=== PATIENT | male | born 1950 | race Caucasian/White ===

== ENCOUNTER → 2023-11-09 08:39 | Outpatient (REF) | payer OTHER, SELFPAY ==
[2023-11-09 09:11] LABS: % Basophils 0.4 % (0-2); % Eosinophils 1.6 % (0-6); % Immature Granulocytes 0.5 % (0-0.5); % Lymphocytes 33.6 % (20.5-51.1); % Monocytes 11.2 % (1.7-9.3); % Neutrophils 52.7 % (42.2-75.2); Absolute Eosinophils 0.1 10^3/uL (0-0.7); Absolute Lymphocytes 1.9 10^3/uL (1.2-3.4); Absolute Monocytes 0.6 10^3/uL (0.1-0.6); Absolute Neutrophils 2.9 10^3/uL (1.4-6.5); Hemoglobin 14.4 g/dL (13.0-18.0); Mean Corp Hgb Conc. 34.3 g/dL (33.0-37.0); Mean Corpuscular Hgb 30.4 pg (27.0-31.0); Mean Corpuscular Volume 88.6 fL (80.0-94.0); Mean Platelet Volume 9.2 fL (7.4-10.4); Nucleated Red Blood Cells % 0 % (-); Platelet Count 182 10^3/uL (130-400); Red Blood Cell Count 4.74 10^6/uL (4.70-6.10); Red Cell Dist. Width 13.5 % (11.5-14.5); White Blood Cell Count 5.5 10^3/uL (4.8-10.8)
[2023-11-09 09:58] LABS: ALT (SGPT) 23 U/L (0-50); AST (SGOT) 20 U/L (17-59); Albumin 3.7 g/dl (3.5-5.0); Alkaline Phosphatase 59 U/L (38-126); Blood Urea Nitrogen 14 mg/dl (9-20); Calcium 9.5 mg/dl (8.4-10.2); Carbon Dioxide 25 mmol/L (22-30); Chloride 103 mmol/L (98-107); Glucose 109 mg/dl (70-99); Magnesium 1.7 mg/dl (1.6-2.3); Sodium 136 mmol/L (135-145); Total Protein 6.1 g/dl (6.3-8.2); eGFR > 60.00
[2023-11-09 10:42] LABS: Protein/creatinine Ratio 2.9; Urine Protein 179 mg/dl
[2023-11-11 02:50] LABS: Tacrolimus (Prograft - FK506) 4.9 ng/mL
== END ==
LOC: REG 08:39
PROVIDERS: ATTENDING PHYSICIAN Specialist; FAMILY PHYSICIAN Internal Medicine
DX: Z94.0 Kidney transplant status (principal); N18.31 Chronic kidney disease, stage 3a; I10 Essential (primary) hypertension
CPT/HCPCS: 36415; 80053; 80197; 82570; 83735; 84156; 85025

== ENCOUNTER → 2023-11-30 08:11 | Outpatient (REF) | payer OTHER, SELFPAY ==
[2023-11-30 08:40] LABS: % Basophils 0.3 % (0-2); % Eosinophils 2.5 % (0-6); % Immature Granulocytes 0.3 % (0-0.5); % Lymphocytes 38.1 % (20.5-51.1); % Monocytes 12.3 % (1.7-9.3); % Neutrophils 46.5 % (42.2-75.2); Absolute Eosinophils 0.2 10^3/uL (0-0.7); Absolute Lymphocytes 2.3 10^3/uL (1.2-3.4); Absolute Monocytes 0.8 10^3/uL (0.1-0.6); Absolute Neutrophils 2.8 10^3/uL (1.4-6.5); Hematocrit 43.3 % (39.0-52.0); Hemoglobin 14.9 g/dL (13.0-18.0); Mean Corp Hgb Conc. 34.4 g/dL (33.0-37.0); Mean Corpuscular Hgb 31.1 pg (27.0-31.0); Mean Corpuscular Volume 90.4 fL (80.0-94.0); Mean Platelet Volume 9.4 fL (7.4-10.4); Nucleated Red Blood Cells % 0 % (-); Platelet Count 177 10^3/uL (130-400); Red Blood Cell Count 4.79 10^6/uL (4.70-6.10); Red Cell Dist. Width 13.6 % (11.5-14.5); White Blood Cell Count 6.1 10^3/uL (4.8-10.8)
[2023-11-30 09:12] LABS: ALT (SGPT) 19 U/L (0-50); AST (SGOT) 18 U/L (17-59); Albumin 3.7 g/dl (3.5-5.0); Alkaline Phosphatase 63 U/L (38-126); Blood Urea Nitrogen 18 mg/dl (9-20); Calcium 9.9 mg/dl (8.4-10.2); Carbon Dioxide 27 mmol/L (22-30); Chloride 102 mmol/L (98-107); Glucose 99 mg/dl (70-99); HDL Cholesterol 46 mg/dl; LDL Cholesterol, Calculated 70 mg/dl; Potassium 4.2 mmol/L (3.5-5.1); Sodium 139 mmol/L (135-145); Total Bilirubin 0.9 mg/dl (0.2-1.3); Total Cholesterol 142 mg/dl (50-199); Total Protein 6.3 g/dl (6.3-8.2); Triglyceride 134 mg/dl (10-149); Very Low Density Lipoprotein 26 mg/dl (0-30); eGFR 58.73
== END ==
LOC: REG 08:11
PROVIDERS: ATTENDING PHYSICIAN Physician Assistant; FAMILY PHYSICIAN Internal Medicine
DX: E11.9 Type 2 diabetes mellitus without complications (principal); E11.21 Type 2 diabetes mellitus with diabetic nephropathy; Z79.4 Long term (current) use of insulin; E78.5 Hyperlipidemia, unspecified; I10 Essential (primary) hypertension
CPT/HCPCS: 36415; 80053; 80061; 83036; 85025

== ENCOUNTER → 2023-12-15 11:51 | Outpatient (REF) | payer OTHER, SELFPAY | LOC: RAD 11:51 | PROVIDERS: ATTENDING PHYSICIAN Nurse Practitioner Acute Care; FAMILY PHYSICIAN Internal Medicine | DX: M48.061 Spinal stenosis, lumbar region without neurogenic claudication (principal) | CPT/HCPCS: 72110 ==

== ENCOUNTER → 2024-01-20 08:09 | Outpatient (REF) | payer OTHER, SELFPAY ==
[2024-01-20 10:28] LABS: Blood Urea Nitrogen 13 mg/dl (9-20); Calcium 9.9 mg/dl (8.4-10.2); Carbon Dioxide 24 mmol/L (22-30); Chloride 103 mmol/L (98-107); Glucose 83 mg/dl (70-99); Potassium 4.3 mmol/L (3.5-5.1); Sodium 140 mmol/L (135-145); eGFR > 60.00
[2024-01-21 21:14] LABS: BK Qnt NAAT IU/mL, Plasma Not Detected; BK Qnt NAAT Interp, Plasma Not Detected (Not Detected); BK Qnt NAAT log IU/mL, Plasma Not Detected log IU/mL
[2024-01-22 00:11] LABS: BK Qnt NAAT IU/mL, Urine 17300 IU/mL; BK Qnt NAAT Interp, Urine Detected (Not Detected); BK Qnt NAAT log IU/mL, Urine 4.24 log IU/mL
== END ==
LOC: REG 08:09
PROVIDERS: ATTENDING PHYSICIAN Specialist; FAMILY PHYSICIAN Internal Medicine
DX: N18.31 Chronic kidney disease, stage 3a (principal)
CPT/HCPCS: 36415; 80048; 87799

== ENCOUNTER → 2024-02-13 07:49 | Outpatient (REF) | payer OTHER, SELFPAY ==
[2024-02-13 08:37] LABS: % Basophils 0.5 % (0-2); % Eosinophils 1.9 % (0-6); % Immature Granulocytes 0.2 % (0-0.5); % Lymphocytes 34.1 % (20.5-51.1); % Neutrophils 52.3 % (42.2-75.2); Absolute Eosinophils 0.1 10^3/uL (0-0.7); Absolute Monocytes 0.6 10^3/uL (0.1-0.6); Hematocrit 43.1 % (39.0-52.0); Hemoglobin 14.5 g/dL (13.0-18.0); Mean Corp Hgb Conc. 33.6 g/dL (33.0-37.0); Mean Platelet Volume 9.5 fL (7.4-10.4); Nucleated Red Blood Cells % 0 % (-); Platelet Count 164 10^3/uL (130-400); Red Blood Cell Count 4.84 10^6/uL (4.70-6.10); Red Cell Dist. Width 12.8 % (11.5-14.5); White Blood Cell Count 5.7 10^3/uL (4.8-10.8)
[2024-02-13 09:04] LABS: ALT (SGPT) 21 U/L (0-50); AST (SGOT) 21 U/L (17-59); Albumin 4.2 g/dl (3.5-5.0); Alkaline Phosphatase 62 U/L (38-126); Blood Urea Nitrogen 16 mg/dl (9-20); Calcium 9.9 mg/dl (8.4-10.2); Carbon Dioxide 24 mmol/L (22-30); Chloride 108 mmol/L (98-107); Glucose 104 mg/dl (70-99); HDL Cholesterol 45 mg/dl; LDL Cholesterol, Calculated 57 mg/dl; Sodium 138 mmol/L (135-145); Total Bilirubin 0.8 mg/dl (0.2-1.3); Total Cholesterol 133 mg/dl (50-199); Total Protein 6.7 g/dl (6.3-8.2); Triglyceride 157 mg/dl (10-149); Very Low Density Lipoprotein 31 mg/dl (0-30); eGFR > 60.00
[2024-02-13 09:50] LABS: Glycohemoglobin (HgbA1c) 6.3 % (4.0-5.6)
== END ==
LOC: REG 07:49
PROVIDERS: ATTENDING PHYSICIAN Physician Assistant; FAMILY PHYSICIAN Internal Medicine
DX: E11.65 Type 2 diabetes mellitus with hyperglycemia (principal)
CPT/HCPCS: 36415; 80053; 80061; 83036; 85025

== ENCOUNTER → 2024-04-09 12:31 | Outpatient (REF) | payer OTHER, SELFPAY | LOC: RAD 12:31 | PROVIDERS: ATTENDING PHYSICIAN Surgery Vascular Surgery; FAMILY PHYSICIAN Internal Medicine | DX: I77.0 Arteriovenous fistula, acquired (principal) | CPT/HCPCS: 93990 ==

== ENCOUNTER → 2024-04-17 11:46 | Outpatient (REF) | payer OTHER, SELFPAY ==
[2024-04-17 13:53] LABS: PSA, Total - Diagnostic 0.25 ng/ml (0.0-4.0)
== END ==
LOC: REG 11:46
PROVIDERS: ATTENDING PHYSICIAN Specialist; FAMILY PHYSICIAN Internal Medicine
DX: C61 Malignant neoplasm of prostate (principal)
CPT/HCPCS: 36415; 84153

== ENCOUNTER → 2024-05-04 08:13 | Outpatient (REF) | payer OTHER, SELFPAY ==
[2024-05-04 09:46] LABS: Magnesium 1.6 mg/dl (1.6-2.3)
[2024-05-04 10:14] LABS: PSA, Total - Diagnostic 0.26 ng/ml (0.0-4.0); Protein/creatinine Ratio 0.7; Urine Protein 72 mg/dl
[2024-05-04 10:56] LABS: TSH Reflex To Free T4 1.87 uIU/ml (0.47-4.68)
[2024-05-05 20:03] LABS: BK Qnt NAAT IU/mL, Urine 163000 IU/mL; BK Qnt NAAT Interp, Urine Detected (Not Detected); BK Qnt NAAT log IU/mL, Urine 5.21 log IU/mL
[2024-05-06 23:28] LABS: BK Qnt NAAT IU/mL, Plasma Not Quantified IU/mL; BK Qnt NAAT Interp, Plasma Detected (Not Detected); BK Qnt NAAT log IU/mL, Plasma Not Quantified log IU/mL
[2024-05-06 23:58] LABS: Tacrolimus (Prograft - FK506) 8.1 ng/mL
== END ==
LOC: REG 08:13
PROVIDERS: ATTENDING PHYSICIAN Specialist; FAMILY PHYSICIAN Internal Medicine; REFERRING PHYSICIAN Specialist
DX: C61 Malignant neoplasm of prostate (principal); N18.31 Chronic kidney disease, stage 3a
CPT/HCPCS: 36415; 80197; 82570; 83735; 84153; 84156; 84443; 87799

== ENCOUNTER → 2024-05-22 07:59 | Outpatient (REF) | payer OTHER, SELFPAY ==
[2024-05-22 10:09] LABS: Blood Urea Nitrogen 20 mg/dl (9-20); Calcium 9.9 mg/dl (8.4-10.2); Carbon Dioxide 29 mmol/L (22-30); Chloride 106 mmol/L (98-107); Glucose 111 mg/dl (70-99); Sodium 139 mmol/L (135-145); eGFR > 60.00
[2024-05-24 14:07] LABS: Tacrolimus (Prograft - FK506) 3.3 ng/mL
== END ==
LOC: REG 07:59
PROVIDERS: ATTENDING PHYSICIAN Specialist; FAMILY PHYSICIAN Internal Medicine
DX: N18.31 Chronic kidney disease, stage 3a (principal); I10 Essential (primary) hypertension; Z94.0 Kidney transplant status
CPT/HCPCS: 36415; 80048; 80197

== ENCOUNTER → 2024-06-13 08:14 | Outpatient (REF) | payer OTHER, SELFPAY ==
[2024-06-13 08:59] LABS: % Basophils 0.4 % (0-2); % Eosinophils 2.7 % (0-6); % Immature Granulocytes 0.2 % (0-0.5); % Lymphocytes 30.2 % (20.5-51.1); % Monocytes 10.8 % (1.7-9.3); % Neutrophils 55.7 % (42.2-75.2); Absolute Eosinophils 0.1 10^3/uL (0-0.7); Absolute Lymphocytes 1.6 10^3/uL (1.2-3.4); Absolute Monocytes 0.6 10^3/uL (0.1-0.6); Absolute Neutrophils 2.9 10^3/uL (1.4-6.5); Hematocrit 41.1 % (39.0-52.0); Hemoglobin 13.9 g/dL (13.0-18.0); Mean Corp Hgb Conc. 33.8 g/dL (33.0-37.0); Mean Corpuscular Hgb 29.8 pg (27.0-31.0); Mean Corpuscular Volume 88.2 fL (80.0-94.0); Mean Platelet Volume 9.7 fL (7.4-10.4); Nucleated Red Blood Cells % 0 % (-); Platelet Count 173 10^3/uL (130-400); Red Blood Cell Count 4.66 10^6/uL (4.70-6.10); Red Cell Dist. Width 13.3 % (11.5-14.5); White Blood Cell Count 5.3 10^3/uL (4.8-10.8)
[2024-06-13 10:58] LABS: ALT (SGPT) 17 U/L (0-50); AST (SGOT) 21 U/L (17-59); Albumin 4.3 g/dl (3.5-5.0); Alkaline Phosphatase 69 U/L (38-126); Blood Urea Nitrogen 18 mg/dl (9-20); Calcium 9.8 mg/dl (8.4-10.2); Carbon Dioxide 21 mmol/L (22-30); Chloride 108 mmol/L (98-107); Glucose 97 mg/dl (70-99); Potassium 4.1 mmol/L (3.5-5.1); Sodium 142 mmol/L (135-145); Total Bilirubin 0.9 mg/dl (0.2-1.3); Total Protein 6.6 g/dl (6.3-8.2); eGFR > 60.00
[2024-06-13 12:41] LABS: Glycohemoglobin (HgbA1c) 5.8 % (4.0-5.6)
== END ==
LOC: REG 08:14
PROVIDERS: ATTENDING PHYSICIAN Physician Assistant; FAMILY PHYSICIAN Internal Medicine; REFERRING PHYSICIAN Specialist
DX: E11.65 Type 2 diabetes mellitus with hyperglycemia (principal)
CPT/HCPCS: 36415; 80053; 83036; 85025

== ENCOUNTER → 2024-07-09 11:02 | Outpatient (REF) | payer OTHER, SELFPAY | LOC: RCS 11:02 | PROVIDERS: ATTENDING PHYSICIAN Internal Medicine Cardiovascular Disease; FAMILY PHYSICIAN Internal Medicine; REFERRING PHYSICIAN Specialist | DX: T82.09XD Other mechanical complication of heart valve prosthesis, subsequent encounter (principal) | CPT/HCPCS: 93306 ==

== ENCOUNTER → 2024-08-14 08:09 | Outpatient (REF) | payer OTHER, SELFPAY ==
[2024-08-14 10:13] LABS: Urine Albumin Trace (Neg - Trace); Urine Bilirubin Negative (Negative); Urine Character Clear (Clear); Urine Color Yellow; Urine Glucose Negative (Negative); Urine Ketone Negative (Negative); Urine Leukocyte Trace (Negative); Urine Nitrite Negative (Negative); Urine Occult Blood Negative (Negative); Urine Urobilinogen 1+ (Neg - 1+); Urine pH 6.5 (5.0-9.0)
[2024-08-14 10:31] LABS: ALT (SGPT) 26 U/L (0-50); AST (SGOT) 18 U/L (17-59); Alkaline Phosphatase 77 U/L (38-126); Direct Bilirubin 0.3 mg/dl (0.0-0.4); Glucose 105 mg/dl (70-99); HDL Cholesterol 41 mg/dl; LDL Cholesterol, Calculated 66 mg/dl; Total Bilirubin 0.9 mg/dl (0.2-1.3); Total Cholesterol 133 mg/dl (50-199); Total Protein 6.5 g/dl (6.3-8.2); Triglyceride 133 mg/dl (10-149); Very Low Density Lipoprotein 26 mg/dl (0-30)
[2024-08-14 10:42] LABS: Urine Squamous Cell 0-2 /LPF (Few)
[2024-08-14 10:43] LABS: Urine Bacteria Few (Negative); Urine Red Blood Cell 0-2 /HPF (0-2); Urine White Cell 0-2 /HPF (0-5)
[2024-08-14 12:04] LABS: Glycohemoglobin (HgbA1c) 6.2 % (4.0-5.6)
== END ==
LOC: REG 08:09
PROVIDERS: ATTENDING PHYSICIAN Specialist; FAMILY PHYSICIAN Internal Medicine
DX: Z00.00 Encounter for general adult medical examination without abnormal findings (principal); E11.21 Type 2 diabetes mellitus with diabetic nephropathy; N18.31 Chronic kidney disease, stage 3a; Z94.0 Kidney transplant status; R31.0 Gross hematuria; I10 Essential (primary) hypertension
CPT/HCPCS: 36415; 80061; 80076; 80197; 81003; 81015; 82947; 83036; 87086

== ENCOUNTER → 2024-09-03 07:50 | Outpatient (REF) | payer OTHER, SELFPAY ==
[2024-09-03 08:36] LABS: Urine Albumin 1+ (Neg - Trace); Urine Bilirubin Negative (Negative); Urine Character Clear (Clear); Urine Color Yellow; Urine Glucose Negative (Negative); Urine Ketone Negative (Negative); Urine Leukocyte Negative (Negative); Urine Nitrite Negative (Negative); Urine Occult Blood Negative (Negative); Urine Urobilinogen Negative (Neg - 1+)
[2024-09-03 08:46] LABS: % Basophils 0.3 % (0-2); % Eosinophils 2.5 % (0-6); % Immature Granulocytes 0.3 % (0-0.5); % Lymphocytes 28.9 % (20.5-51.1); % Monocytes 10.9 % (1.7-9.3); % Neutrophils 57.1 % (42.2-75.2); Absolute Eosinophils 0.2 10^3/uL (0-0.7); Absolute Monocytes 0.8 10^3/uL (0.1-0.6); Absolute Neutrophils 3.9 10^3/uL (1.4-6.5); Hemoglobin 13.8 g/dL (13.0-18.0); Mean Corp Hgb Conc. 32.9 g/dL (33.0-37.0); Mean Corpuscular Hgb 29.7 pg (27.0-31.0); Mean Corpuscular Volume 90.3 fL (80.0-94.0); Mean Platelet Volume 9.7 fL (7.4-10.4); Nucleated Red Blood Cells % 0 % (-); Platelet Count 184 10^3/uL (130-400); Red Blood Cell Count 4.65 10^6/uL (4.70-6.10); Red Cell Dist. Width 13.7 % (11.5-14.5); White Blood Cell Count 6.9 10^3/uL (4.8-10.8)
[2024-09-03 09:07] LABS: ALT (SGPT) 15 U/L (0-50); AST (SGOT) 19 U/L (17-59); Albumin 4.2 g/dl (3.5-5.0); Alkaline Phosphatase 58 U/L (38-126); Blood Urea Nitrogen 15 mg/dl (9-20); Calcium 9.4 mg/dl (8.4-10.2); Carbon Dioxide 25 mmol/L (22-30); Chloride 105 mmol/L (98-107); Glucose 112 mg/dl (70-99); Magnesium 1.8 mg/dl (1.6-2.3); Potassium 4.1 mmol/L (3.5-5.1); Sodium 139 mmol/L (135-145); Total Bilirubin 0.9 mg/dl (0.2-1.3); Total Protein 6.8 g/dl (6.3-8.2); eGFR > 60.00
[2024-09-03 10:00] LABS: Urine Amorphous Seen
[2024-09-03 10:01] LABS: Urine Red Blood Cell 0-2 /HPF (0-2); Urine White Cell 0-2 /HPF (0-5)
== END ==
LOC: REG 07:50
PROVIDERS: ATTENDING PHYSICIAN Specialist; FAMILY PHYSICIAN Internal Medicine
DX: N18.31 Chronic kidney disease, stage 3a (principal); E11.21 Type 2 diabetes mellitus with diabetic nephropathy; I10 Essential (primary) hypertension; Z94.0 Kidney transplant status
CPT/HCPCS: 80053; 81003; 81015; 83735; 85025

== ENCOUNTER → 2024-10-19 08:12 | Outpatient (REF) | payer OTHER, SELFPAY ==
[2024-10-19 09:50] LABS: % Basophils 0.4 % (0-2); % Eosinophils 2.5 % (0-6); % Immature Granulocytes 0.4 % (0-0.5); % Lymphocytes 29.4 % (20.5-51.1); % Neutrophils 55.3 % (42.2-75.2); Absolute Eosinophils 0.1 10^3/uL (0-0.7); Absolute Lymphocytes 1.7 10^3/uL (1.2-3.4); Absolute Monocytes 0.7 10^3/uL (0.1-0.6); Absolute Neutrophils 3.2 10^3/uL (1.4-6.5); Hemoglobin 13.3 g/dL (13.0-18.0); Mean Corp Hgb Conc. 33.3 g/dL (33.0-37.0); Mean Corpuscular Hgb 29.8 pg (27.0-31.0); Mean Corpuscular Volume 89.5 fL (80.0-94.0); Mean Platelet Volume 9.5 fL (7.4-10.4); Nucleated Red Blood Cells % 0 % (-); Platelet Count 164 10^3/uL (130-400); Red Blood Cell Count 4.47 10^6/uL (4.70-6.10); Red Cell Dist. Width 13.6 % (11.5-14.5); White Blood Cell Count 5.7 10^3/uL (4.8-10.8)
[2024-10-19 10:15] LABS: ALT (SGPT) 17 U/L (0-50); AST (SGOT) 19 U/L (17-59); Albumin 4.4 g/dl (3.5-5.0); Alkaline Phosphatase 63 U/L (38-126); Blood Urea Nitrogen 17 mg/dl (9-20); Calcium 9.4 mg/dl (8.4-10.2); Carbon Dioxide 26 mmol/L (22-30); Chloride 104 mmol/L (98-107); Glucose 101 mg/dl (70-99); Potassium 4.3 mmol/L (3.5-5.1); Sodium 140 mmol/L (135-145); Total Bilirubin 1.1 mg/dl (0.2-1.3); Total Protein 7.1 g/dl (6.3-8.2); eGFR > 60.00
[2024-10-19 10:44] LABS: PSA, Total - Diagnostic 0.67 ng/ml (0.0-4.0)
[2024-10-19 12:14] LABS: Glycohemoglobin (HgbA1c) 5.9 % (4.0-5.6)
== END ==
LOC: REG 08:12
PROVIDERS: ATTENDING PHYSICIAN Specialist; FAMILY PHYSICIAN Internal Medicine; OTHER PHYSICIAN Specialist; REFERRING PHYSICIAN Physician Assistant
DX: C61 Malignant neoplasm of prostate (principal); E11.65 Type 2 diabetes mellitus with hyperglycemia
CPT/HCPCS: 36415; 80053; 83036; 84153; 85025

== ENCOUNTER → 2024-12-10 08:07 | Outpatient (REF) | payer OTHER, SELFPAY ==
[2024-12-10 09:19] LABS: Hematocrit 40.8 % (39.0-52.0); Hemoglobin 13.4 g/dL (13.0-18.0); Mean Corp Hgb Conc. 32.8 g/dL (33.0-37.0); Mean Corpuscular Hgb 29.5 pg (27.0-31.0); Mean Corpuscular Volume 89.9 fL (80.0-94.0); Mean Platelet Volume 9.2 fL (7.4-10.4); Platelet Count 162 10^3/uL (130-400); Red Blood Cell Count 4.54 10^6/uL (4.70-6.10); Red Cell Dist. Width 13.4 % (11.5-14.5); White Blood Cell Count 5.6 10^3/uL (4.8-10.8)
[2024-12-10 09:59] LABS: ALT (SGPT) 19 U/L (0-50); AST (SGOT) 18 U/L (17-59); Albumin 3.9 g/dl (3.5-5.0); Alkaline Phosphatase 62 U/L (38-126); Blood Urea Nitrogen 16 mg/dl (9-20); Calcium 9.7 mg/dl (8.4-10.2); Carbon Dioxide 25 mmol/L (22-30); Chloride 107 mmol/L (98-107); Glucose 129 mg/dl (70-99); Sodium 139 mmol/L (135-145); Total Bilirubin 0.7 mg/dl (0.2-1.3); Total Protein 6.4 g/dl (6.3-8.2); eGFR > 60.00
[2024-12-11 19:48] LABS: Tacrolimus (Prograft - FK506) 3.1 ng/mL
[2024-12-11 22:55] LABS: BK Qnt NAAT IU/mL, Plasma 30 IU/mL; BK Qnt NAAT Interp, Plasma Detected (Not Detected); BK Qnt NAAT log IU/mL, Plasma 1.47 log IU/mL
[2024-12-12 03:59] LABS: BK Qnt NAAT IU/mL, Urine 64800 IU/mL; BK Qnt NAAT Interp, Urine Detected (Not Detected); BK Qnt NAAT log IU/mL, Urine 4.81 log IU/mL
== END ==
LOC: REG 08:07
PROVIDERS: ATTENDING PHYSICIAN Specialist; FAMILY PHYSICIAN Internal Medicine
DX: N18.31 Chronic kidney disease, stage 3a (principal)
CPT/HCPCS: 36415; 80053; 80197; 85027; 87799

== ENCOUNTER → 2024-12-21 08:01 | Outpatient (REF) | payer OTHER, SELFPAY | LOC: REG 08:01 | PROVIDERS: ATTENDING PHYSICIAN Specialist; FAMILY PHYSICIAN Internal Medicine | DX: N18.31 Chronic kidney disease, stage 3a (principal); Z94.0 Kidney transplant status; E78.5 Hyperlipidemia, unspecified | CPT/HCPCS: 36415; 80197 ==

== ENCOUNTER → 2025-01-21 07:50 | Outpatient (REF) | payer OTHER, SELFPAY ==
[2025-01-21 08:34] LABS: % Basophils 0.2 % (0-2); % Eosinophils 2.9 % (0-6); % Immature Granulocytes 0.2 % (0-0.5); % Lymphocytes 32.2 % (20.5-51.1); % Monocytes 11.2 % (1.7-9.3); % Neutrophils 53.3 % (42.2-75.2); Absolute Eosinophils 0.2 10^3/uL (0-0.7); Absolute Lymphocytes 1.7 10^3/uL (1.2-3.4); Absolute Monocytes 0.6 10^3/uL (0.1-0.6); Absolute Neutrophils 2.8 10^3/uL (1.4-6.5); Hematocrit 41.7 % (39.0-52.0); Hemoglobin 13.8 g/dL (13.0-18.0); Mean Corp Hgb Conc. 33.1 g/dL (33.0-37.0); Mean Corpuscular Hgb 29.5 pg (27.0-31.0); Mean Corpuscular Volume 89.1 fL (80.0-94.0); Mean Platelet Volume 9.5 fL (7.4-10.4); Nucleated Red Blood Cells % 0 % (-); Platelet Count 162 10^3/uL (130-400); Red Blood Cell Count 4.68 10^6/uL (4.70-6.10); Red Cell Dist. Width 13.3 % (11.5-14.5); White Blood Cell Count 5.3 10^3/uL (4.8-10.8)
[2025-01-21 09:32] LABS: ALT (SGPT) 27 U/L (0-50); AST (SGOT) 24 U/L (17-59); Albumin 4.4 g/dl (3.5-5.0); Alkaline Phosphatase 72 U/L (38-126); Blood Urea Nitrogen 15 mg/dl (9-20); Calcium 9.6 mg/dl (8.4-10.2); Carbon Dioxide 28 mmol/L (22-30); Chloride 106 mmol/L (98-107); Glucose 117 mg/dl (70-99); Sodium 144 mmol/L (135-145); Total Bilirubin 0.9 mg/dl (0.2-1.3); Total Protein 6.9 g/dl (6.3-8.2); eGFR > 60.00
== END ==
LOC: REG 07:50
PROVIDERS: ATTENDING PHYSICIAN Physician Assistant; FAMILY PHYSICIAN Internal Medicine
DX: E11.65 Type 2 diabetes mellitus with hyperglycemia (principal)
CPT/HCPCS: 36415; 80053; 83036; 85025

== ENCOUNTER 2025-02-18 11:13 | Emergency (ER) | payer OTHER, SELFPAY ==
[2025-02-18 11:43] VITALS: BP 151/71
[2025-02-18 12:09] LABS: % Basophils 0.2 % (0-2); % Immature Granulocytes 0.3 % (0-0.5); % Lymphocytes 24.1 % (20.5-51.1); % Monocytes 9.8 % (1.7-9.3); % Neutrophils 62.6 % (42.2-75.2); Absolute Eosinophils 0.2 10^3/uL (0-0.7); Absolute Lymphocytes 1.5 10^3/uL (1.2-3.4); Absolute Monocytes 0.6 10^3/uL (0.1-0.6); Absolute Neutrophils 3.8 10^3/uL (1.4-6.5); Hematocrit 41.7 % (39.0-52.0); Hemoglobin 14.1 g/dL (13.0-18.0); Mean Corp Hgb Conc. 33.8 g/dL (33.0-37.0); Mean Corpuscular Hgb 29.6 pg (27.0-31.0); Mean Corpuscular Volume 87.4 fL (80.0-94.0); Mean Platelet Volume 9.8 fL (7.4-10.4); Nucleated Red Blood Cells % 0 % (-); Platelet Count 185 10^3/uL (130-400); Red Blood Cell Count 4.77 10^6/uL (4.70-6.10); Red Cell Dist. Width 12.9 % (11.5-14.5)
[2025-02-18 12:25] LABS: ALT (SGPT) 18 U/L (0-50); AST (SGOT) 22 U/L (17-59); Albumin 3.8 g/dl (3.5-5.0); Alkaline Phosphatase 58 U/L (38-126); Blood Urea Nitrogen 14 mg/dl (9-20); Calcium 9.3 mg/dl (8.4-10.2); Carbon Dioxide 31 mmol/L (22-30); Chloride 102 mmol/L (98-107); Glucose 134 mg/dl (70-99); Lipase 402 U/L (23-300); Potassium 3.8 mmol/L (3.5-5.1); Sodium 140 mmol/L (135-145); Total Bilirubin 0.6 mg/dl (0.2-1.3); Total Protein 6.5 g/dl (6.3-8.2); eGFR > 60.00
[2025-02-18 12:35] LABS: Troponin I 0.026 ng/ml
[2025-02-18 14:54] VITALS: BP 183/72
[2025-02-18 15:00] VITALS: BP 185/78
[2025-02-18 15:14] VITALS: BMI 38.6
[2025-02-18 15:56] LABS: Troponin I 0.023 ng/ml
--- NOTE | 2025-02-18 16:40 | ED.GENMED ---
History of Present Illness
General
Chief Complaint: Chest Pain
Time Seen by Provider: 02/18/25 15:10
History of Present Illness
History of Present Illness:
74-year-old male with complex medical history including diabetes, hyperlipidemia, hypertension, new diagnosis of prostate CA (started on Lupron), history of end-stage renal disease status post transplant 5 years ago on tacrolimus and mycophenolate
presenting to the emergency department for chest discomfort. Patient reports for the past 4 days has had a generalized sternal chest pain, reports mostly chronic, however did go away last evening, returned today. Denies exertional component. Does
follow cardiology, had a CABG in 2013. Reports that his last catheterization was in 2018. Denies any difficulty breathing. Does note that his blood pressure has been up and down, has been following with both his machine carton marker and his primary care
doctor with recent adjustment to his medications. He notes that he started a new medication regimen on Tuesday. Denies fever or infectious symptoms. Denies abdominal pain or GI symptoms. Denies additional acute medical complaints
Past History
Past History
ED Past Medical History: IDDM and Other (Renal failure, prostate CA)
Social History
Tobacco: Non-smoker
Alcohol: None
Drug: None
Personal:
Living: with family
Phy Exam
Physical Exam
Physical Exam:
General: Well-appearing, no clinical signs of dehydration, nontoxic and in no acute distress
HEENT: protecting airway
Neck: appears supple
CV: Normal heart rate, regular rhythm
Resp: No accessory muscle use, no increased work of breathing, lungs clear to auscultation bilaterally
Abd: Soft and non-distended, no tenderness to palpation
Extremities: No deformities, no swelling
Neuro: alert, no focal neurologic deficit
: deferred
Rectal: deferred
Psych: Normal affect
Skin: Intact
Scores
Heart Score for Chest Pain Patients
STEMI patient?: No
History: Slightly or Non-Suspicious
ECG: Normal
Age: >/= 65 years
Risk Factors: >/= 3 Risk Factors or History of CAD
Troponin: </= Normal Limit
Heart Score for Chest Pain Patients: 4
Heart Score Risk: 20.3% MACE over next 6 weeks
Course
Orders/Labs/Results
Orders:
Orders
02/18/25 11:14
Electrocardiogram (*1) Urgent
Reason for Study: Chest Pain
EKG- Treatment ONCE
02/18/25 11:57
Complete Blood Count/With Diff Urgent
Comprehensive Metabolic Panel Urgent
Lipase Urgent
Troponin I Urgent
02/18/25 15:16
Electrocardiogram (*1) Urgent
Reason for Study: Chest Pain
EKG- Treatment ONCE
02/18/25 15:25
Troponin I Urgent
Abnormal Lab Results
02/18/25
11:57
Monocytes % 9.8 H %
(1.7-9.3)
Carbon Dioxide 31 H mmol/L
(22-30)
Glucose 134 H mg/dl
(70-99)
Lipase 402 H U/L
(23-300)
02/18/25 11:57
02/18/25 11:57
Vital Signs
Initial and Last Documented VS:
Initial Vital Signs
Temp Pulse Resp BP Pulse Ox
98.3 F 67 18 151/71 98
02/18/25 11:43 02/18/25 11:43 02/18/25 11:43 02/18/25 11:43 02/18/25 11:43
Last Documented Vital Signs
Temp Pulse Resp BP Pulse Ox
98.3 F 64 21 185/78 96
02/18/25 11:43 02/18/25 16:15 02/18/25 16:15 02/18/25 15:00 02/18/25 16:15
MDM/Problems Addressed
MDM/Problems Addressed:
74-year-old male with complex medical history including diabetes, hyperlipidemia, hypertension, new diagnosis of prostate CA (started on Lupron), history of end-stage renal disease status post transplant 5 years ago on tacrolimus and mycophenolate.
Vital signs arrival significant for hypertension
On exam patient is resting comfortably, no acute distress or discomfort. Reports that he still having some chest discomfort. EKG shows Ventricular paced rhythm. Exam is relatively benign, unremarkable cardiac and pulmonary exam. No tenderness to
the abdomen. Labs obtained prior to my assessment, does show mild elevation of lipase, however no tenderness to palpation of the abdomen. Normal renal function. Troponin is detectable, however within normal limits. Will plan for repeat given
cardiac risk factors. Suspect possible gastric component. On review of EMR, most recent stress test was in 2022, moderate risk. Last catheterization was in 2018. Given patient's significant coronary risk factors, will discuss with cardiology
team.
17:45 - Repeat troponin is unchanged. Cardiology at bedside. Do not suspect cardiac etiology. They feel that he is stable to go home, and in agreement with their assessment. They will call him tomorrow to set up a stress test. Advised that
patient continue his new blood pressure regiment. Patient is also in agreement with this plan. Return precaution discussed and patient verbalized understanding
*EKG
Interpreted by ED Provider?: Yes
EKG Intrepretation Date: 02/18/25
EKG Intrepretation Time: 16:44
Interpretation: normal
Comparison EKG: no changes
Heart Rate: 65
Rate: normal
Rhythm: ventricular paced
[place]: normal axis
Interval: normal interval
QRS Pattern: normal QRS
Ischemia: non-specific ST changes
*Critical Care Note
Total Time (30-74mins, 75-104mins- exclusive of procedures): Not Applicable
ED Attending Note
-
Portions of this chart may have been created with voice recognition software.� Occasional wrong word or��sound alike� substitutions may have occurred due to the inherent limitations of voice recognition software.
Discharge Plan
Departure
Prescriptions:
No Action
atorvastatin 10 MG tablet
10 mg PO DAILY
loratadine 10 MG tablet
10 mg PO DAILYPRN PRN (Reason: allergies)
labetalol 200 MG tablet
200 mg PO TID@0800,1500,2300
tacrolimus 1 MG capsule
1 mg PO BID
Patient Comments:
takes 1 capsule (1mg total) by mouth 2 times a day.
mycophenolate sodium 180 MG tablet,delayed release (DR/EC)
540 mg PO BID
aspirin 81 MG tablet,chewable
81 mg PO DAILY
nifedipine 60 MG tablet extended release
60 mg PO BID 0RF
insulin glargine [Lantus U-100 Insulin] 100 UNIT/ML solution
10 unit SQ HS
Patient Comments:
units increased to 10 per pt
sulfamethoxazole-trimethoprim 1 TABLET tablet
1 tab PO MOWEFR
prednisone 5 MG tablet
5 mg PO QID
Patient Comments:
Taking 4 tablets for 2 weeks then tapering as directed
sitagliptin phosphate [Januvia] 25 MG tablet
25 mg PO DAILY
valganciclovir 450 MG tablet
900 mg PO DAILY
nystatin 100,000 UNITS/ML suspension
5 ml PO QID
tacrolimus 0.5 MG capsule
0.5 mg PO DAILY
Patient Comments:
take 1 capsule (.5mg total) by mouth.
Pt taking 1.5 mg in am and 1 mg in pm.
insulin lispro [Humalog KwikPen Insulin] 200 UNIT/ML insulin pen
200 unit SQ MEALS
Patient Comments:
2 units 15 minutes before meals
Referrals:
Denton Willams MD [Family Provider] -
Interventions
Interventions:
*Risk Screen - Suicide Last Done: 02/18/25 11:43
*General Assessment Last Done: 02/18/25 11:43
*Neglect/Abuse Screening Last Done: 02/18/25 15:14
*ED COVID-19 Vaccine History Last Done: 02/18/25 11:43
ED- Cardiac Assessment Last Done: 02/18/25 15:20
Discharge Date and Time
Print Language: MOLDOVAN
--- NOTE | 2025-02-18 17:02 | CON.CAR ---
Addendum entered and electronically signed by Elmo Manuel MD 02/18/25 17:58:
I saw and examined the patient.
The MACHINE SCALLOP CUTTER's note was reviewed and I agree with the note.
Comment: 73-year-old male (known to Dr. Razo, his primary factory manager) with severe s/p AVR and CAD with CABG (2013), TAVR (2019), ESRD/HD then transplant (02/2020), LBBB, hypertension, dyslipidemia, type 2 diabetes mellitus, and prostate
cancer who presented to the ER with a chief complaint of chest pain. His CP is burning in nature and comes and goes. He describes it as mild and more of a nuisance. Previously, when he had chest pain associated with his coronary artery disease no
significant dyspnea on exertion. He denies having this. Thus, it is not clear that this burning pain is CAD, but rather possibly GERD. I discussed obtaining an outpatient stress test with him and his and they are in agreement with this. Of
course I discussed scenarios in which he should come back to the emergency room and he was able to verbalize understanding.
- Outpatient nuclear Lexiscan stress test later this week
Original Note:
Consultation
Consultation Request
Date/Time Consultation Requested: 02/18/2025 16:30
Date/Time Consultation Performed: 02/18/2025 16:45
Requesting Provider: Dr. Johnson
Performing Provider: DA Ruffin for Dr. Manuel
Reason for Consultation: Chest pain
Medical History
-
Chief Complaint: Chest pain
History of Present Illness:
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
prostate cancer who presented to the ER with a chief complaint of chest pain. His chest pain has been off and on for the past 4 days. He describes it as a midsternal anterior chest burning. It does not radiate. Nothing makes it better or worse.
He has tried Tums to which he thinks he got some relief. Last night he had no chest pain at all. It returned today. He had at least 1 hour of continuous chest discomfort prior to arrival. It did not get worse with exertion. It did not improve
with rest. No shortness of breath, dizziness, diaphoresis. Cardiology was consulted for chest pain evaluation. He had a Lexiscan nuclear stress test in July, which did not demonstrate any ischemia. Cardiac catheterization 12/2018 showed
both grafts were patent with excellent runoff along with a 40% proximal stenosis in his RCA. He is currently chest pain-free. He recently saw his power grader operator, Dr. Kessler, who has been managing his hypertension.
Past Medical History
Past Medical History: CAD (CABG 2013), Cancer (Prostate), CHF (Resolved ischemic cardiomyopathy), HTN, Hypercholesterolemia, NIDDM, Renal Failure (ESRD status post transplant), Valvular Disease (Severe s/p AVR [2013] & TAVR [2019]) and Other
(LBBB)
Past Surgical History: Cardiac and Urological
Social History
Tobacco: Former Smoker
Alcohol: None
Drug: None
Personal:
Living: With Family
Family History
Family History: Reviewed & Not Pertinent
Allergies / Home Medications
Allergy/AdvReac Type Severity Reaction Status Date / Time
carrot Allergy RAW-MOUTH Verified 02/18/25 11:49
SWELLING
celery Allergy RAW-MOUTH Verified 02/18/25 11:49
SWELLING
hayfever Allergy nasal Uncoded 02/18/25 11:49
congestion
�Medication �Instructions �Recorded �Confirmed �Type
atorvastatin 10 mg tablet 10 mg PO DAILY High cholesterol 12/11/13 03/26/21 History
loratadine 10 mg tablet 10 mg PO DAILYPRN PRN allergies 08/18/16 03/26/21 History
aspirin 81 mg chewable tablet 81 mg PO DAILY Blood clot 09/05/20 03/26/21 History
prevention/tx
labetalol 200 mg tablet 200 mg PO TID@0800,1500,2300 Blood 09/05/20 03/26/21 History
pressure
mycophenolate sodium 180 mg 540 mg PO BID Transplant 09/05/20 03/26/21 History
tablet,delayed release
tacrolimus 1 mg capsule, 1 mg PO BID Transplant 09/05/20 03/26/21 History
immediate-release
nifedipine 60 mg tablet,extended 60 mg PO BID 09/06/20 03/26/21 Rx
release
insulin glargine 100 unit/mL 10 unit SQ HS 03/19/21 03/26/21 History
subcutaneous solution (Lantus
U-100 Insulin)
prednisone 5 mg tablet 5 mg PO QID 03/19/21 03/26/21 History
sitagliptin phosphate 25 mg tablet 25 mg PO DAILY 03/19/21 03/26/21 History
(Januvia)
sulfamethoxazole 400 1 tab PO MOWEFR 03/19/21 03/26/21 History
mg-trimethoprim 80 mg tablet
valganciclovir 450 mg tablet 900 mg PO DAILY 03/19/21 03/26/21 History
insulin lispro 200 unit/mL (3 mL) 200 unit SQ MEALS 03/26/21 03/26/21 History
subcutaneous pen (Humalog KwikPen
U-200 Insulin)
nystatin 100,000 unit/mL oral 5 ml PO QID 03/26/21 03/26/21 History
suspension
tacrolimus 0.5 mg capsule, 0.5 mg PO DAILY 03/26/21 03/26/21 History
immediate-release
Review of Systems
-
History Source: Patient
All other systems: Negative unless noted
Constitutional: No Symptoms
EENT: No Symptoms
Respiratory: No Symptoms
Cardiac: No Symptoms
Abdomen/GI: No Symptoms
: No Symptoms
Musculoskeletal: No Symptoms
Skin: No Symptoms
Neurological: No Symptoms
Endocrine: No Symptoms
Hematologic/Lymphatic: No Symptoms
Physical Exam
Vital Signs
Temp Pulse Resp BP Pulse Ox
98.3 F 64 21 185/78 96
02/18/25 11:43 02/18/25 16:15 02/18/25 16:15 02/18/25 15:00 02/18/25 16:15
Lab Results
02/18/25 11:57
02/18/25 11:57
Troponin I 0.023 ng/ml 02/18/25 15:25
Physical Exam
General: Well Developed, Well Nourished, No Apparent Distress and Comfortable
HEENT: Normocephalic, Anicteric and Moist Mucous Membranes
Respiratory: Clear and Non Labored Respirations
Cardiac: S1/S2 and Regular Rhythm
Breast: Deferred by me
GI: Soft, Non Tender, Non Distended and Normal Bowel Sounds
Rectal: Deferred by Provider
Genito-urinary: No Costovertebral Tender
Musculoskeletal: No Clubbing and No Cyanosis
Skin: Warm and Dry
Neuro: AO x 3
Hematologic/Lymphatic: No Lymphadenopathy
Psych: Calm
Impression / Plan
-
I/P: 74M with severe s/p AVR and CAD with CABG (2013), TAVR (2019), ESRD/HD then transplant (02/2020), LBBB, hypertension, dyslipidemia, type 2 diabetes mellitus, and prostate cancer who presented to the ER with a chief complaint of chest pain.
Primary factory manager: Dr. Razo
Chest pain
- EKG shows paced rhythm
- Troponin 0.026 and 0.023 with at least 1 hour of consistent pain
- Currently chest pain-free
CAD
- Continue medical management
- He cannot be on high-dose statin due to antirejection medications
- No SGLT2 given propensity for UTI
Severe aortic stenosis s/p AVR (2013) and TAVR (2019)
- Stable on most recent echocardiogram
Hypertensive urgency
- Evaluated by Dr. Kessler 02/14/2025, losartan stopped valsartan started, labetalol increased, clonidine started PRN (SBP > 190mmHg)
Status post kidney transplant, follows with Dr. Kessler
Permanent pacemaker, followed in outpatient device clinic
Dyslipidemia, continue atorvastatin, goal LDL <55
Type 2 diabetes mellitus, follows with Dr. Rodriguez as an outpatient
Prostate cancer, activity in left iliac and left para-aortic nodes, on Lupron, managed by Dr. Bazan
Data Reviewed
-
EKG: Report Reviewed by me
Medical Tests (Nuc Med, Echo etc): Report Reviewed by me
Labs: Labs Reviewed by me
Old Records: Reviewed
[2025-02-18 18:09] VITALS: BP 204/84
== END 2025-02-18 18:30 | disposition home or self-care (01) ==
LOC: EMR 11:13
PROVIDERS: Emergency Medicine; EMERGENCY PHYSICIAN Student in an Organized Health Care Education/Training Program; FAMILY PHYSICIAN Internal Medicine
DX: R10.9 Unspecified abdominal pain (principal); R07.89 Other chest pain; I13.2 Hypertensive heart and chronic kidney disease with heart failure and with stage 5 chronic kidney disease, or end stage renal disease; I50.9 Heart failure, unspecified; E11.22 Type 2 diabetes mellitus with diabetic chronic kidney disease; N18.6 End stage renal disease; E78.00 Pure hypercholesterolemia, unspecified; I35.0 Nonrheumatic aortic (valve) stenosis; I25.10 Atherosclerotic heart disease of native coronary artery without angina pectoris; Z83.49 Family history of other endocrine, nutritional and metabolic diseases; Z87.891 Personal history of nicotine dependence; Z94.0 Kidney transplant status; Z95.0 Presence of cardiac pacemaker; Z95.1 Presence of aortocoronary bypass graft; Z95.2 Presence of prosthetic heart valve
CPT/HCPCS: 99283; 80053; 83690; 84484; 85025; 93005

== ENCOUNTER → 2025-02-22 07:07 | Outpatient (REF) | payer OTHER, SELFPAY ==
[2025-02-22] MEDS: LEXISCAN 0.4 MG IV (09:04)
[2025-02-22] MEDS: AMINOPHYLLINE 75 MG IV (09:24)
== END ==
LOC: RCS 07:07
PROVIDERS: ATTENDING PHYSICIAN Student in an Organized Health Care Education/Training Program; FAMILY PHYSICIAN Internal Medicine
DX: I25.10 Atherosclerotic heart disease of native coronary artery without angina pectoris (principal); R07.9 Chest pain, unspecified
CPT/HCPCS: 78452; 93017; A9500; J2785

== ENCOUNTER → 2025-03-12 08:14 | Outpatient (REF) | payer OTHER, SELFPAY ==
[2025-03-12 10:32] LABS: ALT (SGPT) 17 U/L (0-50); AST (SGOT) 20 U/L (17-59); Albumin 4.2 g/dl (3.5-5.0); Alkaline Phosphatase 55 U/L (38-126); Direct Bilirubin 0.2 mg/dl (0.0-0.4); Glucose 119 mg/dl (70-99); HDL Cholesterol 44 mg/dl; LDL Cholesterol, Calculated 102 mg/dl; Total Bilirubin 0.8 mg/dl (0.2-1.3); Total Cholesterol 181 mg/dl (50-199); Total Protein 6.7 g/dl (6.3-8.2); Triglyceride 178 mg/dl (10-149); Very Low Density Lipoprotein 35 mg/dl (0-30)
== END ==
LOC: REG 08:14
PROVIDERS: ATTENDING PHYSICIAN Internal Medicine; REFERRING PHYSICIAN Specialist
DX: E11.21 Type 2 diabetes mellitus with diabetic nephropathy (principal); I10 Essential (primary) hypertension; E78.5 Hyperlipidemia, unspecified
CPT/HCPCS: 36415; 80061; 80076; 82947

== ENCOUNTER → 2025-03-13 14:47 | Outpatient (REF) | payer OTHER, SELFPAY | LOC: RCS 14:47 | PROVIDERS: ATTENDING PHYSICIAN Internal Medicine Cardiovascular Disease; FAMILY PHYSICIAN Internal Medicine | DX: R94.39 Abnormal result of other cardiovascular function study (principal); I25.10 Atherosclerotic heart disease of native coronary artery without angina pectoris; R07.9 Chest pain, unspecified | CPT/HCPCS: 93306 ==

== ENCOUNTER → 2025-03-26 08:03 | Outpatient (REF) | payer OTHER, SELFPAY ==
[2025-03-26 09:00] LABS: % Basophils 0.4 % (0-2); % Eosinophils 3.9 % (0-6); % Immature Granulocytes 0.2 % (0-0.5); % Lymphocytes 30.2 % (20.5-51.1); % Monocytes 11.4 % (1.7-9.3); % Neutrophils 53.9 % (42.2-75.2); Absolute Eosinophils 0.2 10^3/uL (0-0.7); Absolute Lymphocytes 1.5 10^3/uL (1.2-3.4); Absolute Monocytes 0.6 10^3/uL (0.1-0.6); Absolute Neutrophils 2.6 10^3/uL (1.4-6.5); Hematocrit 41.4 % (39.0-52.0); Mean Corp Hgb Conc. 33.8 g/dL (33.0-37.0); Mean Corpuscular Hgb 29.7 pg (27.0-31.0); Mean Corpuscular Volume 87.9 fL (80.0-94.0); Mean Platelet Volume 9.7 fL (7.4-10.4); Nucleated Red Blood Cells % 0 % (-); Platelet Count 160 10^3/uL (130-400); Red Blood Cell Count 4.71 10^6/uL (4.70-6.10); Red Cell Dist. Width 12.9 % (11.5-14.5); White Blood Cell Count 4.9 10^3/uL (4.8-10.8)
[2025-03-26 09:19] LABS: ALT (SGPT) 15 U/L (0-50); AST (SGOT) 18 U/L (17-59); Albumin 4.1 g/dl (3.5-5.0); Alkaline Phosphatase 54 U/L (38-126); Blood Urea Nitrogen 17 mg/dl (9-20); Calcium 9.7 mg/dl (8.4-10.2); Carbon Dioxide 26 mmol/L (22-30); Chloride 110 mmol/L (98-107); Direct Bilirubin 0.3 mg/dl (0.0-0.4); Glucose 128 mg/dl (70-99); Potassium 3.8 mmol/L (3.5-5.1); Sodium 141 mmol/L (135-145); Total Bilirubin 0.6 mg/dl (0.2-1.3); Total Protein 6.7 g/dl (6.3-8.2); eGFR > 60.00
[2025-03-26 09:49] LABS: PSA, Total - Diagnostic < 0.06 ng/ml (0.0-4.0)
[2025-03-28 18:19] LABS: Tacrolimus (Prograft - FK506) <2.0 ng/mL
== END ==
LOC: REG 08:03
PROVIDERS: ATTENDING PHYSICIAN Internal Medicine Hematology & Oncology; FAMILY PHYSICIAN Internal Medicine; OTHER PHYSICIAN Specialist
DX: C61 Malignant neoplasm of prostate (principal); E78.5 Hyperlipidemia, unspecified; I10 Essential (primary) hypertension; Z94.0 Kidney transplant status; N18.5 Chronic kidney disease, stage 5
CPT/HCPCS: 36415; 80053; 80197; 82248; 84153; 85025

== ENCOUNTER → 2025-04-09 08:01 | Outpatient (REF) | payer OTHER, SELFPAY ==
[2025-04-11 12:20] LABS: Tacrolimus (Prograft - FK506) <2.0 ng/mL
== END ==
LOC: REG 08:01
PROVIDERS: ATTENDING PHYSICIAN Specialist; FAMILY PHYSICIAN Internal Medicine
DX: N18.31 Chronic kidney disease, stage 3a (principal)
CPT/HCPCS: 36415; 80197

== ENCOUNTER → 2025-04-19 08:53 | Outpatient (REF) | payer OTHER, SELFPAY ==
[2025-04-21 18:42] LABS: Tacrolimus (Prograft - FK506) 3.1 ng/mL
== END ==
LOC: REG 08:53
PROVIDERS: ATTENDING PHYSICIAN Specialist; FAMILY PHYSICIAN Internal Medicine
DX: N18.31 Chronic kidney disease, stage 3a (principal)
CPT/HCPCS: 36415; 80197

== ENCOUNTER → 2025-04-26 08:29 | Outpatient (REF) | payer OTHER, SELFPAY ==
[2025-04-29 08:01] LABS: Tacrolimus (Prograft - FK506) 3.7 ng/mL
== END ==
LOC: REG 08:29
PROVIDERS: ATTENDING PHYSICIAN Specialist; FAMILY PHYSICIAN Internal Medicine
DX: N18.31 Chronic kidney disease, stage 3a (principal); Z94.0 Kidney transplant status; E11.21 Type 2 diabetes mellitus with diabetic nephropathy; I25.10 Atherosclerotic heart disease of native coronary artery without angina pectoris
CPT/HCPCS: 36415; 80197

== ENCOUNTER → 2025-05-24 07:50 | Outpatient (REF) | payer OTHER, SELFPAY ==
[2025-05-24 09:26] LABS: Hematocrit 40.1 % (39.0-52.0); Hemoglobin 13.3 g/dL (13.0-18.0); Mean Corp Hgb Conc. 33.2 g/dL (33.0-37.0); Mean Corpuscular Volume 88.7 fL (80.0-94.0); Nucleated Red Blood Cells % 0 % (-); Platelet Count 169 10^3/uL (130-400); Red Cell Dist. Width 13.2 % (11.5-14.5)
[2025-05-24 09:56] LABS: Glycohemoglobin (HgbA1c) 6.0 % (4.0-5.6)
[2025-05-24 09:58] LABS: ALT (SGPT) 12 U/L (0-50); AST (SGOT) 18 U/L (17-59); Albumin 4.1 g/dl (3.5-5.0); Alkaline Phosphatase 56 U/L (38-126); Blood Urea Nitrogen 19 mg/dl (9-20); Calcium 9.8 mg/dl (8.4-10.2); Carbon Dioxide 27 mmol/L (22-30); Chloride 103 mmol/L (98-107); Glucose 103 mg/dl (70-99); Potassium 3.9 mmol/L (3.5-5.1); Sodium 139 mmol/L (135-145); Total Protein 6.8 g/dl (6.3-8.2); eGFR > 60.00
[2025-05-26 16:10] LABS: Tacrolimus (Prograft - FK506) 2.5 ng/mL
== END ==
LOC: REG 07:50
PROVIDERS: ATTENDING PHYSICIAN Specialist; FAMILY PHYSICIAN Internal Medicine; REFERRING PHYSICIAN Physician Assistant
DX: E78.5 Hyperlipidemia, unspecified (principal); I10 Essential (primary) hypertension; Z94.0 Kidney transplant status; E11.65 Type 2 diabetes mellitus with hyperglycemia
CPT/HCPCS: 36415; 80053; 80197; 83036; 85025

== ENCOUNTER → 2025-05-29 07:24 | Outpatient (REF) | payer OTHER, SELFPAY | LOC: RAD 07:24 | PROVIDERS: ATTENDING PHYSICIAN Internal Medicine Cardiovascular Disease; FAMILY PHYSICIAN Internal Medicine; OTHER PHYSICIAN Ophthalmology | DX: I25.10 Atherosclerotic heart disease of native coronary artery without angina pectoris (principal); H53.9 Unspecified visual disturbance | CPT/HCPCS: 93880 ==

== ENCOUNTER → 2025-06-05 07:38 | Outpatient (REF) | payer OTHER, SELFPAY ==
[2025-06-07 09:49] LABS: Tacrolimus (Prograft - FK506) 3.6 ng/mL
== END ==
LOC: REG 07:38
PROVIDERS: ATTENDING PHYSICIAN Specialist; FAMILY PHYSICIAN Internal Medicine
DX: Z94.0 Kidney transplant status (principal); I10 Essential (primary) hypertension; E78.5 Hyperlipidemia, unspecified; N18.5 Chronic kidney disease, stage 5
CPT/HCPCS: 36415; 80197

== ENCOUNTER → 2025-06-24 07:53 | Outpatient (REF) | payer OTHER, SELFPAY ==
[2025-06-24 09:30] LABS: Hematocrit 40.4 % (39.0-52.0); Hemoglobin 13.5 g/dL (13.0-18.0); Mean Corp Hgb Conc. 33.4 g/dL (33.0-37.0); Mean Corpuscular Volume 90.4 fL (80.0-94.0); Nucleated Red Blood Cells % 0 % (-); Platelet Count 178 10^3/uL (130-400); Red Cell Dist. Width 13.1 % (11.5-14.5)
[2025-06-24 09:51] LABS: ALT (SGPT) 12 U/L (0-50); AST (SGOT) 18 U/L (17-59); Albumin 4.1 g/dl (3.5-5.0); Alkaline Phosphatase 52 U/L (38-126); Blood Urea Nitrogen 17 mg/dl (9-20); Calcium 9.6 mg/dl (8.4-10.2); Carbon Dioxide 28 mmol/L (22-30); Chloride 104 mmol/L (98-107); Glucose 124 mg/dl (70-99); HDL Cholesterol 44 mg/dl; LDL Cholesterol, Calculated 87 mg/dl; Potassium 4.3 mmol/L (3.5-5.1); Sodium 139 mmol/L (135-145); Total Protein 6.6 g/dl (6.3-8.2); Very Low Density Lipoprotein 38 mg/dl (0-30); eGFR > 60.00
[2025-06-24 09:56] LABS: Glycohemoglobin (HgbA1c) 5.8 % (4.0-5.6)
[2025-06-24 10:05] LABS: PSA, Total - Diagnostic < 0.06 ng/ml (0.0-4.0)
[2025-06-26 14:21] LABS: Tacrolimus (Prograft - FK506) 5.2 ng/mL
== END ==
LOC: REG 07:53
PROVIDERS: ATTENDING PHYSICIAN Specialist; FAMILY PHYSICIAN Internal Medicine; OTHER PHYSICIAN Internal Medicine Hematology & Oncology; REFERRING PHYSICIAN Specialist
DX: C61 Malignant neoplasm of prostate (principal); I10 Essential (primary) hypertension; E78.5 Hyperlipidemia, unspecified; N18.6 End stage renal disease; E11.21 Type 2 diabetes mellitus with diabetic nephropathy; E11.40 Type 2 diabetes mellitus with diabetic neuropathy, unspecified; E66.9 Obesity, unspecified; N18.31 Chronic kidney disease, stage 3a
CPT/HCPCS: 36415; 80053; 80061; 80197; 82248; 83036; 84153; 85025

== ENCOUNTER 2025-08-26 13:13 | Emergency (ER) | payer OTHER, SELFPAY ==
[2025-08-26 13:15] VITALS: BP 149/49
--- NOTE | 2025-08-26 14:04 | ED.GENMED ---
History of Present Illness
<Kendra Holland BICYCLE REPAIRER - Last Filed: 08/26/25 17:19>
General
Chief Complaint: Breathing Problem
Source: patient
Exam Limitations: none
Time Seen by Provider: 08/26/25 14:05
Nursing documentation reviewed up to this point in time: agreed with
History of Present Illness
History of Present Illness:
The patient is a 74-year-old male with a history of prostate cancer and a past medical history of kidney transplant, presenting with right side chest pain since , which was initially constant. The pain started 4 days ago in the morning, with
relief after taking oxycodone for a back condition. However, it returned the next morning despite medication and persisted through the weekend. Pain was worse with deep breaths. He also had shortness of breath on exertion, such as when going to the
bathroom. He took a shower this morning before coming to the emergency department, and the chest pain seemed to have resolved afterward around 11:30 am. and has not returned.
Pt expressed concern about a possible heart attack or blood clot. He reported no recent leg pain or previous history of blood clots. He denies nausea, vomiting, diarrhea, constipation, abdominal pain, or trouble urinating.
He states symptoms have completely resolved and 'now I can take a deep breath and I couldn't before.'
Past History
<Kendra Holland, BICYCLE REPAIRER - Last Filed: 08/26/25 17:19>
Past History
ED Past Medical History: HTN, Hypercholesterolemia, IDDM and Other (Renal failure, prostate CA 2016 w surgery and radiation. PSA 0 until lately starting to go up, PET scan showed active L inguinal lymph nodes and pt on Erleada. F/u PET scan was
'clear,' but pt remains on Erleada.)
ED Past Surgical History: Cardiac (Pacemaker/defibrillator, TAVR) and Other (Prostatectomy, Kidney transplant 02/2020)
Social History
Tobacco: Non-smoker
Alcohol: None
Drug: None
Personal:
Living: with family
Review of Systems
<Kendra Holland BICYCLE REPAIRER - Last Filed: 08/26/25 17:19>
Review of Systems
Allergies reviewed?: Yes
All Other Systems: ROS reviewed and negative except as documented in HPI and ROS
Phy Exam
<Kendra Holland BICYCLE REPAIRER - Last Filed: 08/26/25 17:19>
Physical Exam
Physical Exam:
GENERAL: No acute distress. A&Ox3.
CONSTITUTIONAL: Afebrile.
EYES: clear, conjunctivae normal
ENMT: moist mucus membranes, Pharynx nl
RESPIRATORY: Regular respirations, nonlabored, lungs clear.
CARDIOVASCULAR: Regular rate and rhythm, no murmurs, no rubs.
GI: Soft, nontender, normal BS
MUSCULOSKELETAL: Moves with ease. Well perfused. No edema
SKIN: Warm, dry, pink
PSYCH: Normal mood and affect. Well kept, interactive and appropriate
NEUROLOGIC: Awake, alert and oriented. No focal neurological deficits
Scores
<Fadi Couch PA-C - Last Filed: 08/26/25 23:51>
Heart Failure Risk
Heart Failure Risk Score: Not Applicable
Course
<Kendra Holland BICYCLE REPAIRER - Last Filed: 08/26/25 17:19>
Orders/Labs/Results
Orders:
Orders
08/26/25 14:25
IV Insert/Care/Rem.- Treatment PRN
08/26/25 14:27
Complete Blood Count/With Diff Urgent
Comprehensive Metabolic Panel Urgent
NT-proBNP Urgent
Troponin I Urgent
08/26/25 15:05
D-Dimer Urgent
08/26/25 16:16
CT Chest PE Study Urgent
Comment:
Reason For Exam: Sob, CP, elevated dimer
08/26/25 17:44
Troponin I Urgent
Abnormal Lab Results
08/26/25 08/26/25 08/26/25
14:27 15:05 17:44
WBC 4.7 L 10^3/uL
(4.8-10.8)
RBC 4.22 L 10^6/uL
(4.70-6.10)
Hgb 12.7 L g/dL
(13.0-18.0)
Hct 37.4 L %
(39.0-52.0)
Monocytes % 11.7 H %
(1.7-9.3)
D-Dimer 1.57 H ug/mlFEU
(0.00-0.50)
Glucose 140 H mg/dl
(70-99)
AST 15 L U/L
(17-59)
Troponin I 0.038 H* ng/ml 0.039 H* ng/ml
08/26/25 14:27
08/26/25 14:27
Vital Signs
Initial and Last Documented VS:
Initial Vital Signs
Temp Pulse Resp BP Pulse Ox
98.2 F 61 18 149/49 97
08/26/25 13:15 08/26/25 13:15 08/26/25 13:15 08/26/25 13:15 08/26/25 13:15
Last Documented Vital Signs
Temp Pulse Resp BP Pulse Ox
98.2 F 71 16 193/85 97
08/26/25 13:15 08/26/25 18:27 08/26/25 18:27 08/26/25 19:31 08/26/25 14:05
Pamelalt;Fadi Couch PA-C - Last Filed: 08/26/25 23:51>
Orders/Labs/Results
Orders:
Orders
08/26/25 14:25
IV Insert/Care/Rem.- Treatment PRN
08/26/25 14:27
Complete Blood Count/With Diff Urgent
Comprehensive Metabolic Panel Urgent
NT-proBNP Urgent
Troponin I Urgent
08/26/25 15:05
D-Dimer Urgent
08/26/25 16:16
CT Chest PE Study Urgent
Comment:
Reason For Exam: Sob, CP, elevated dimer
08/26/25 17:44
Troponin I Urgent
Abnormal Lab Results
08/26/25 08/26/25 08/26/25
14:27 15:05 17:44
WBC 4.7 L 10^3/uL
(4.8-10.8)
RBC 4.22 L 10^6/uL
(4.70-6.10)
Hgb 12.7 L g/dL
(13.0-18.0)
Hct 37.4 L %
(39.0-52.0)
Monocytes % 11.7 H %
(1.7-9.3)
D-Dimer 1.57 H ug/mlFEU
(0.00-0.50)
Glucose 140 H mg/dl
(70-99)
AST 15 L U/L
(17-59)
Troponin I 0.038 H* ng/ml 0.039 H* ng/ml
08/26/25 14:27
08/26/25 14:27
Vital Signs
Initial and Last Documented VS:
Initial Vital Signs
Temp Pulse Resp BP Pulse Ox
98.2 F 61 18 149/49 97
08/26/25 13:15 08/26/25 13:15 08/26/25 13:15 08/26/25 13:15 08/26/25 13:15
Last Documented Vital Signs
Temp Pulse Resp BP Pulse Ox
98.2 F 71 16 193/85 97
08/26/25 13:15 08/26/25 18:27 08/26/25 18:27 08/26/25 19:31 08/26/25 14:05
<Kendra Holland BICYCLE REPAIRER - Last Filed: 08/26/25 17:19>
MDM/Problems Addressed
Differential Diagnosis Includes:
AK, PE, PNA, CHF, costochondritis
MDM/Problems Addressed:
The patient is a 74-year-old male with a history of prostate cancer and a past medical history of kidney transplant, presenting with right side chest pain since , which was initially constant. The pain started 4 days ago in the morning, with
relief after taking oxycodone for a back condition. However, it returned the next morning despite medication and persisted through the weekend. Pain was worse with deep breaths. He also had shortness of breath on exertion, such as when going to the
bathroom. He took a shower this morning before coming to the emergency department, and the chest pain seemed to have resolved afterward around 11:30 am. and has not returned.
Pt expressed concern about a possible heart attack or blood clot. He reported no recent leg pain or previous history of blood clots. He denies nausea, vomiting, diarrhea, constipation, abdominal pain, or trouble urinating.
He states symptoms have completely resolved and 'now I can take a deep breath and I couldn't before.'
Afebrile, NAD, pulse ox 97% RA
CBC:w no clinically significant abnormality
CMP: unremarkable
Troponin: 0.038
BNP: 4770
D dimer: 1.[address] pending
Pt and updated.
5:00 p.m.
Pt remains stable
Case discussed with Darryl ARGUELLES who will assume care from this point
Repeat Troponin and Chest CT PE study pending.
<Kendra Holland BICYCLE REPAIRER - Last Filed: 08/26/25 17:19>
*Pulse Oximetry
SaO2: 97
<Fadi Couch PA-C - Last Filed: 08/26/25 23:51>
*Pulse Oximetry
Patient hypoxic: no
*Critical Care Note
Total Time (30-74mins, 75-104mins- exclusive of procedures): Not Applicable
<Fadi Couch PA-C - Last Filed: 08/26/25 23:51>
Update Note
Update Note:
Assumed care of patient at shift change from Shakira holland BICYCLE REPAIRER, patient with intermittent pleuritic right chest pain, pending CT PE study due to elevated D-dimer. Cardiac enzymes trivially elevated but repeat is in process. Ultimately PE study showed
no evidence for abnormality. Repeat cardiac enzymes are stable. Pain did wax and wane in the emergency department but on my assessment is clearly reproducible to palpation thus low clinical suspicion for cardiac or pulmonary etiology
ED Attending Note
<Kendra Holland BICYCLE REPAIRER - Last Filed: 08/26/25 17:19>
-
Portions of this chart may have been created with voice recognition software.� Occasional wrong word or��sound alike� substitutions may have occurred due to the inherent limitations of voice recognition software.
Discharge Plan
Departure
Patient Disposition: Home (Routine Discharge)
Date of Disposition: 08/26/25
Time of Disposition: 19:28
Patient with high blood pressure during this ER visit?: No
Discharge Problem:
Atypical chest pain
Instructions: Chest Pain (DC)
Prescriptions:
No Action
loratadine 10 MG tablet
10 mg PO DAILYPRN PRN (Reason: allergies)
labetalol 200 MG tablet
450 mg PO BID
tacrolimus 1 MG capsule
3 mg PO BID
Patient Comments:
mycophenolate sodium 180 MG tablet,delayed release (DR/EC)
540 mg PO BID
aspirin 81 MG tablet,chewable
81 mg PO DAILY
insulin glargine [Lantus U-100 Insulin] 100 UNIT/ML solution
17 unit SQ HS
prednisone 5 MG tablet
5 mg PO DAILY
atorvastatin [Lipitor] 20 mg Tablet
20 mg PO DAILY
oxycodone-acetaminophen [Percocet] 5-325 mg Tablet
1 tab PO Q8HPRN PRN (Reason: severe pain)
valsartan 320 mg Tablet
320 mg PO QPM
furosemide [Lasix] 20 mg Tablet
20 mg PO DAILYPRN PRN (Reason: fluid)
Mounjaro 7.5 mg/0.5 mL Pen Injector
7.5 mg SC MO
nifedipine 60 MG tablet extended release
60 mg PO BID
Erleada 60 mg Tablet
120 mg PO QPM
Referrals:
Denton Willams MD [Family Provider, Internal Medicine]
Interventions
Interventions:
*Risk Screen - Suicide Last Done: 08/26/25 13:19
*General Assessment Last Done: 08/26/25 18:29
*Neglect/Abuse Screening Last Done: 08/26/25 13:19
*ED- Fall Risk Assessment Last Done: 08/26/25 18:29
*ED COVID-19 Vaccine History Last Done: 08/26/25 18:29
*ED Influenza Vaccine History Last Done: 08/26/25 18:29
*Nursing Disposition Last Done: 08/26/25 18:29
ED- Cardiac Assessment Last Done: 08/26/25 18:26
ED- Pulmonary Assessment Last Done: 08/26/25 18:26
Discharge Date and Time
Discharge Date/Time: 08/26/25 19:43
Print Language: [place] CITIZ[place]
[2025-08-26 14:18] VITALS: BMI 38.4
[2025-08-26 14:27] VITALS: BP 156/71
[2025-08-26 14:45] LABS: Hematocrit 37.4 % (39.0-52.0); Hemoglobin 12.7 g/dL (13.0-18.0); Mean Corp Hgb Conc. 34.0 g/dL (33.0-37.0); Mean Corpuscular Volume 88.6 fL (80.0-94.0); Nucleated Red Blood Cells % 0 % (-); Platelet Count 170 10^3/uL (130-400); Red Cell Dist. Width 12.7 % (11.5-14.5)
[2025-08-26 15:02] LABS: ALT (SGPT) < 10 U/L (0-50); AST (SGOT) 15 U/L (17-59); Albumin 3.8 g/dl (3.5-5.0); Alkaline Phosphatase 56 U/L (38-126); Blood Urea Nitrogen 14 mg/dl (9-20); Calcium 9.3 mg/dl (8.4-10.2); Carbon Dioxide 29 mmol/L (22-30); Chloride 103 mmol/L (98-107); Estimated Creatinine Clearance 78 ml/min; Glucose 140 mg/dl (70-99); Potassium 4.2 mmol/L (3.5-5.1); Sodium 135 mmol/L (135-145); Total Protein 6.4 g/dl (6.3-8.2); eGFR > 60.00
[2025-08-26 15:27] LABS: D-Dimer 1.57 ug/mlFEU (0.00-0.50)
[2025-08-26 16:00] LABS: Troponin I 0.038 ng/ml
[2025-08-26 18:18] LABS: Troponin I 0.039 ng/ml
[2025-08-26 19:31] VITALS: BP 193/85
== END 2025-08-26 19:43 | disposition home or self-care (01) ==
LOC: EMR 13:13
PROVIDERS: Registered Nurse; EMERGENCY PHYSICIAN Emergency Medicine; FAMILY PHYSICIAN Internal Medicine
DX: R07.89 Other chest pain (principal); I10 Essential (primary) hypertension; E78.00 Pure hypercholesterolemia, unspecified; E11.9 Type 2 diabetes mellitus without complications; Z85.46 Personal history of malignant neoplasm of prostate; Z90.79 Acquired absence of other genital organ(s); Z94.0 Kidney transplant status
CPT/HCPCS: 99284; 71275; 80053; 83880; 84484; 85025; 85379; Q9967

== ENCOUNTER → 2025-09-20 08:06 | Outpatient (REF) | payer OTHER, SELFPAY ==
[2025-09-20 08:55] LABS: Hematocrit 41.4 % (39.0-52.0); Hemoglobin 13.9 g/dL (13.0-18.0); Mean Corp Hgb Conc. 33.6 g/dL (33.0-37.0); Mean Corpuscular Volume 88.3 fL (80.0-94.0); Nucleated Red Blood Cells % 0 % (-); Platelet Count 156 10^3/uL (130-400); Red Cell Dist. Width 12.9 % (11.5-14.5)
[2025-09-20 09:04] LABS: Urine Character Clear (Clear)
[2025-09-20 09:25] LABS: ALT (SGPT) 12 U/L (0-50); AST (SGOT) 16 U/L (17-59); Albumin 4.2 g/dl (3.5-5.0); Alkaline Phosphatase 64 U/L (38-126); Blood Urea Nitrogen 14 mg/dl (9-20); Calcium 9.6 mg/dl (8.4-10.2); Carbon Dioxide 23 mmol/L (22-30); Chloride 103 mmol/L (98-107); Glucose 150 mg/dl (70-99); Potassium 3.9 mmol/L (3.5-5.1); Sodium 136 mmol/L (135-145); Total Protein 6.8 g/dl (6.3-8.2); eGFR > 60.00
[2025-09-20 09:30] LABS: Urine Squamous Cell 0-2 /LPF (Few)
[2025-09-20 09:33] LABS: Urine Red Blood Cell 0-2 /HPF (0-2)
[2025-09-20 11:25] LABS: Glycohemoglobin (HgbA1c) 6.0 % (4.0-5.9)
== END ==
LOC: REG 08:06
PROVIDERS: ATTENDING PHYSICIAN Physician Assistant; FAMILY PHYSICIAN Internal Medicine; OTHER PHYSICIAN Specialist
DX: N18.31 Chronic kidney disease, stage 3a (principal); E11.65 Type 2 diabetes mellitus with hyperglycemia
CPT/HCPCS: 36415; 80053; 80197; 81003; 81015; 82570; 83036; 84156; 85025